=== PATIENT | male | born 1965 | race American Indian/Alaskan Native ===

== ENCOUNTER 2017-09-26 15:51 | Emergency (ER) | payer MEDICAID ==
[2017-09-26 16:04] VITALS: BP 153/96
[2017-09-26] MEDS ORDERED: MOTRIN PO ONE (17:10)
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
== END 2017-09-26 17:17 | disposition home or self-care (01) ==
LOC: ED 15:51
DX: S39.012A Strain of muscle, fascia and tendon of lower back, initial encounter (principal); S46.912A Strain of unspecified muscle, fascia and tendon at shoulder and upper arm level, left arm, initial encounter; I10 Essential (primary) hypertension; M19.90 Unspecified osteoarthritis, unspecified site; V89.2XXA Person injured in unspecified motor-vehicle accident, traffic, initial encounter; Y93.89 Activity, other specified; Y92.89 Other specified places as the place of occurrence of the external cause; Y99.8 Other external cause status
CPT/HCPCS: 99282

== ENCOUNTER 2019-07-25 09:24 | Emergency (ER) | payer MEDICAID ==
--- NOTE | 2019-07-25 10:21 | XRay Report ---
CHEST 2 VIEWS INDICATION: cough. COMPARISON: None. FINDINGS: Support devices: None. Heart: Within normal limits. Pulmonary vasculature: Normal. Lungs/pleura: No acute air space or interstitial disease. No pneumothorax. Additional findings: None. IMPRESSION: 1. No acute findings. Signer Name: Darryl Yen MD Signed: 07/25/2019 10:17 AM Workstation Name: [id number]
[2019-07-25] MEDS ORDERED: IPRATROPIUM/ALBUTEROL SULFATE 3 ML AMPUL.NEB IH ONE (10:36)
[2019-07-25] MEDS ORDERED: predniSONE 20 MG TAB PO ONE (10:37)
--- NOTE | 2019-07-25 11:05 | Emergency Department Report ---
ED General Adult HPI - General Chief complaint: Upper Respiratory Infection Stated complaint: COUGHING Time Seen by Provider: 07/25/19 10:00 Source: patient Mode of arrival: Ambulatory Limitations: No Limitations - History of Present Illness Initial comments: This a 53-year-old man with cerebral palsy accompanied by his mother who is his hospitality coordinator. He has limited ability to provide historical information. He can answer to the affirmative or negative. His mother states that he has been wheezing for the last few days. He does have a nebulizer machine at home. He is out of medication. His been occasionally coughing but there is been no fever or chills observed. His mother states that he "only has one kidney". She states that she thinks that he had blood work which was normal within a year. He has no known history of chronic lung. -: days(s) Associated Symptoms: denies other symptoms, cough, shortness of breath - Related Data Home Medications Medication Instructions Recorded Confirmed Last Taken Carvedilol [Coreg] 12.5 mg PO BID 12/25/14 12/25/14 Unknown Lisinopril [Zestril TAB] 20 mg PO BID 12/25/14 12/25/14 Unknown amLODIPine [Norvasc] 5 mg PO DAILY 12/25/14 12/25/14 Unknown levETIRAcetam [Keppra TAB] 1,000 mg PO BID 12/25/14 12/25/14 Unknown Previous Rx's Medication Instructions Recorded Last Taken Type Acetaminophen/Codeine 1 tab PO Q6H PRN #10 tab 12/25/14 Unknown Rx [Acetaminophen-Codeine #3 TAB] Fluticasone [Flonase] 1 spray NS QDAY #1 bottle 12/25/14 Unknown Rx Pseudoephedrine (Nf) [Sudafed (Nf)] 60 mg PO BID PRN #10 tab 12/25/14 Unknown Rx Cyclobenzaprine [Flexeril] 10 mg PO TID PRN #20 tablet 09/26/17 Unknown Rx Ibuprofen [Motrin] 600 mg PO Q8H PRN #20 tablet 09/26/17 Unknown Rx Azithromycin [Zithromax Z-KELLEN] 250 mg PO DAILY #6 tab 07/25/19 Unknown Rx predniSONE [Deltasone] 40 mg PO QDAY #10 tab 07/25/19 Unknown Rx Allergies Allergy/AdvReac Type Severity Reaction Status Date / Time No Known Allergies Allergy Verified 05/30/14 03:57 ED Review of Systems ROS: Stated complaint: COUGHING Other details as noted in HPI Constitutional: denies: chills, fever Eyes: denies: eye pain, eye discharge, vision change ENT: denies: ear pain, throat pain Respiratory: cough, wheezing. denies: shortness of breath Cardiovascular: denies: chest pain, palpitations Endocrine: no symptoms reported Gastrointestinal: denies: abdominal pain, nausea, diarrhea Genitourinary: denies: urgency, dysuria Musculoskeletal: denies: back pain, joint swelling, arthralgia Skin: denies: rash, lesions Neurological: denies: headache, weakness, paresthesias Psychiatric: denies: anxiety, depression Hematological/Lymphatic: denies: easy bleeding, easy bruising ED Past Medical Hx - Past Medical History Previous Medical History?: Yes Hx Hypertension: Yes Hx Arthritis: Yes Hx Seizures: Yes Additional medical history: cerbral palsy - Surgical History Past Surgical History?: Yes Additional Surgical History: kidney removed at hernia repair - Social History Smoking Status: Never Smoker Substance Use Type: None - Medications Home Medications: Home Medications Medication Instructions Recorded Confirmed Last Taken Type Acetaminophen/Codeine 1 tab PO Q6H PRN #10 tab 12/25/14 Unknown Rx [Acetaminophen-Codeine #3 TAB] Carvedilol [Coreg] 12.5 mg PO BID 12/25/14 12/25/14 Unknown History Fluticasone [Flonase] 1 spray NS QDAY #1 bottle 12/25/14 Unknown Rx Lisinopril [Zestril TAB] 20 mg PO BID 12/25/14 12/25/14 Unknown History Pseudoephedrine (Nf) [Sudafed (Nf)] 60 mg PO BID PRN #10 tab 12/25/14 Unknown Rx amLODIPine [Norvasc] 5 mg PO DAILY 12/25/14 12/25/14 Unknown History levETIRAcetam [Keppra TAB] 1,000 mg PO BID 12/25/14 12/25/14 Unknown History Cyclobenzaprine [Flexeril] 10 mg PO TID PRN #20 tablet 09/26/17 Unknown Rx Ibuprofen [Motrin] 600 mg PO Q8H PRN #20 tablet 09/26/17 Unknown Rx Azithromycin [Zithromax Z-KELLEN] 250 mg PO DAILY #6 tab 07/25/19 Unknown Rx predniSONE [Deltasone] 40 mg PO QDAY #10 tab 07/25/19 Unknown Rx ED Physical Exam - General Limitations: No Limitations General appearance: alert, in no apparent distress - Head Head exam: Present: atraumatic, normocephalic - Eye Eye exam: Present: normal appearance - ENT ENT exam: Present: mucous membranes moist - Neck Neck exam: Present: normal inspection - Respiratory Respiratory exam: Present: wheezes, prolonged expiratory. Absent: respiratory distress, accessory muscle use, decreased breath sounds - Cardiovascular Cardiovascular Exam: Present: regular rate, normal rhythm. Absent: systolic murmur, diastolic murmur, rubs, gallop - GI/Abdominal GI/Abdominal exam: Present: soft, normal bowel sounds. Absent: distended, tenderness, guarding, rebound, rigid - Rectal Rectal exam: Present: deferred - Extremities Exam Extremities exam: Present: normal inspection, normal capillary refill. Absent: pedal edema, joint swelling, calf tenderness - Back Exam Back exam: Present: normal inspection - Neurological Exam Neurological exam: Present: alert, oriented X3, CN II-XII intact. Absent: motor sensory deficit - Psychiatric Psychiatric exam: Present: normal mood, flat affect - Skin Skin exam: Present: warm, dry, intact, normal color. Absent: rash ED Course Vital Signs 07/25/19 07/25/19 07/25/19 09:32 10:59 12:00 Temperature 98.1 F Pulse Rate 69 72 Pulse Rate [ 76 Anterior Bilateral Throughout] Respiratory 18 18 Rate Respiratory 22 Rate [Anterior Bilateral Throughout] Blood Pressure 133/90 Blood Pressure 131/90 [Left] O2 Sat by Pulse 100 98 Oximetry - Reevaluation(s) Reevaluation #1: Patient with clear lungs now asymptomatic. He is appropriate for outpatient management. 07/25/19 12:29 ED Medical Decision Making - Lab Data Result diagrams: 07/25/19 10:40 07/25/19 10:40 Laboratory Results - last 24 hr 07/25/19 07/25/19 10:40 10:40 WBC 8.5 RBC 4.87 Hgb 15.2 Hct 44.3 MCV 91 MCH 31 MCHC 34 RDW 13.7 Plt Count 195 Lymph % (Auto) 21.2 [place] % (Auto) 11.8 H Eos % (Auto) 1.3 Baso % (Auto) 0.5 Lymph # 1.8 [place] # 1.0 H Eos # 0.1 Baso # 0.0 Seg Neutrophils % 65.2 Seg Neutrophils # 5.5 Sodium 140 Potassium 4.1 Chloride 101.0 Carbon Dioxide 24 Anion Gap 19 BUN 17 Creatinine 1.0 Estimated GFR > 60 BUN/Creatinine Ratio 17 Glucose 109 H Calcium 8.9 Total Bilirubin 0.40 Direct Bilirubin < 0.2 Indirect Bilirubin 0.2 AST 17 ALT 15 Alkaline Phosphatase 58 Total Protein 7.7 Albumin 3.9 Albumin/Globulin Ratio 1.0 - Radiology Data Radiology results: report reviewed (no acute process), image reviewed Critical care attestation.: If time is entered above; I have spent that time in minutes in the direct care of this critically ill patient, excluding procedure time. ED Disposition Clinical Impression: Exacerbation of asthma Qualifiers: Asthma severity: moderate Asthma persistence: unspecified Qualified Code(s): J45.901 - Unspecified asthma with (acute) exacerbation Acute bronchitis Qualifiers: Bronchitis organism: unspecified organism Qualified Code(s): J20.9 - Acute bronchitis, unspecified Disposition: DC-01 TO HOME OR SELFCARE Is pt being admited?: No Does the pt Need Aspirin: No Condition: Stable Instructions: Acute Bronchitis (ED) Additional Instructions: Follow-up with family physician. Rx as directed. Return any acute change or worsening symptoms. Prescriptions: predniSONE [Deltasone] 40 mg PO QDAY #10 tab Azithromycin [Zithromax Z-KELLEN] 250 mg PO DAILY #6 tab Referrals: PRIMARY CARE, [Primary Care Provider] - 3-5 Days Time of Disposition: 12:32
[2019-07-25 11:12] LABS: Basophils % (Auto) 0.5 % (0.0-1.8); Eosinophils # (Auto) 0.1 K/mm3 (0.0-0.4); Eosinophils % (Auto) 1.3 % (0.0-4.3); Hematocrit 44.3 % (35.5-45.6); Hemoglobin 15.2 gm/dl (11.8-15.2); Lymphocytes # (Auto) 1.8 K/mm3 (1.2-5.4); Lymphocytes % (Auto) 21.2 % (13.4-35.0); Mean Corpuscular HGB Conc 34 % (32-34); Mean Corpuscular Volume 91 fl (84-94); Monocytes % (Auto) 11.8 % (0.0-7.3); Platelet Count 195 K/mm3 (140-440); Red Blood Count 4.87 M/mm3 (3.65-5.03); Red Cell Distribution Width 13.7 % (13.2-15.2)
[2019-07-25 11:36] LABS: Alanine Aminotransferase 15 units/L (7-56); Albumin 3.9 g/dL (3.9-5); BUN/Creatinine Ratio 17; Blood Urea Nitrogen 17 mg/dL (9-20); Calcium 8.9 mg/dL (8.4-10.2); Hemolysis Index 12
[2019-07-25 11:41] LABS: Bilirubin,Direct < 0.2 mg/dL (0-0.2)
[2019-07-25 12:02] VITALS: BP 131/90
== END 2019-07-25 12:53 | disposition home or self-care (01) ==
LOC: ED 09:24
DX: J45.901 Unspecified asthma with (acute) exacerbation (principal); J20.9 Acute bronchitis, unspecified; I10 Essential (primary) hypertension; G80.9 Cerebral palsy, unspecified
CPT/HCPCS: 36415; 71046; 80048; 80076; 85025; 94640; 99284; J7512; 94644

== ENCOUNTER 2021-02-04 09:53 | Emergency (ER) | payer MEDICAID ==
[2021-02-04 10:33] VITALS: BP 142/93
--- NOTE | 2021-02-04 10:36 | Emergency Department Report ---
- General Chief Complaint: Upper Respiratory Infection Stated Complaint: COUGHING Time Seen by Provider: 02/04/21 10:30 Source: patient Mode of arrival: Ambulatory Limitations: Other - History of Present Illness Initial Comments: 55-year-old male with a past medical history of cerebral palsy, hypertension and arthritis was brought to the ER today by foster mom with complaints of coughing. She states that patient started with a wet cough 4 days ago. She reports mild nasal congestion but otherwise denies any apparent shortness of breath/difficulty breathing, wheezing complaints of chest pain, fever or chills. She states that the cough seems to be worse when patient is in the hospital when he gets outside it seems to improve. She states that she has been giving patient nebulizer treatments 2 times per day. Patient has had similar symptoms of his cough, and prior ER evaluation for his cough in the past. She states that she is also follow-up with patient's primary care doctor but there has been no official diagnosis of the cause of the cough. She denies any known diagnosis of asthma or COPD or any other lung disease. She states patient does not smoke. She states patient was exposed to someone at his adult daycare facility who had COVID-19. She states that patient had a COVID-19 test last week and it was negative. He also received his first Covid vaccine last week but it was after getting a COVID-19 test. She denies any recent travel. MD Complaint: cough -: Gradual, days(s) (4) - Related Data Home Medications Medication Instructions Recorded Confirmed Last Taken amLODIPine 5 mg PO DAILY 12/25/14 12/25/14 02/04/21 carvediloL [Coreg] 12.5 mg PO BID 12/25/14 12/25/14 02/04/21 10:43 lisinopriL [Zestril TAB] 20 mg PO BID 12/25/14 12/25/14 02/04/21 10:42 Previous Rx's Medication Instructions Recorded Last Taken Type Albuterol Mdi (or & Nicu Only) 2 puff IH QID PRN #8.5 gram 02/04/21 Unknown Rx [ProAir HFA Inhaler] Azithromycin [Zithromax Z-KELLEN] 250 mg PO DAILY #1 pack 02/04/21 Unknown Rx Benzonatate [Tessalon Perles] 100 mg PO Q8HR PRN #30 capsule 02/04/21 Unknown Rx Cetirizine HCl [Zyrtec 10mg tab] 10 mg PO DAILY #30 tablet 02/04/21 Unknown Rx predniSONE [Deltasone] 50 mg PO QDAY #5 tab 02/04/21 Unknown Rx Allergies Allergy/AdvReac Type Severity Reaction Status Date / Time No Known Allergies Allergy Verified 02/04/21 10:29 ED Review of Systems ROS: Stated complaint: COUGHING Other details as noted in HPI Comment: All other systems reviewed and negative Constitutional: denies: chills, diaphoresis, fever, malaise Eyes: denies: vision change ENT: congestion. denies: ear pain, throat pain, dental pain, hearing loss, epistaxis Respiratory: cough. denies: shortness of breath, SOB with exertion, SOB at rest, wheezing Cardiovascular: denies: chest pain, palpitations, dyspnea on exertion, edema, syncope, paroxysmal nocturnal dyspnea Endocrine: no symptoms reported Gastrointestinal: denies: abdominal pain, nausea, diarrhea, constipation, hematemesis, hematochezia Genitourinary: denies: urgency, dysuria Musculoskeletal: denies: back pain, joint swelling, arthralgia Skin: denies: rash, lesions, change in color, change in hair/nails Neurological: denies: headache, weakness, numbness, paresthesias, confusion, abnormal gait, vertigo Psychiatric: denies: auditory hallucinations, visual hallucinations, homicidal thoughts, suicidal thoughts Hematological/Lymphatic: denies: easy bleeding, easy bruising ED Past Medical Hx - Past Medical History Hx Hypertension: Yes Hx Arthritis: Yes Hx Seizures: Yes Additional medical history: cerbral palsy - Surgical History Additional Surgical History: kidney removed at hernia repair - Social History Smoking Status: Never Smoker Substance Use Type: None - Medications Home Medications: Home Medications Medication Instructions Recorded Confirmed Last Taken Type amLODIPine 5 mg PO DAILY 12/25/14 12/25/14 02/04/21 History carvediloL [Coreg] 12.5 mg PO BID 12/25/14 12/25/14 02/04/21 10:43 History lisinopriL [Zestril TAB] 20 mg PO BID 12/25/14 12/25/14 02/04/21 10:42 History Albuterol Mdi (or & Nicu Only) 2 puff IH QID PRN #8.5 gram 02/04/21 Unknown Rx [ProAir HFA Inhaler] Azithromycin [Zithromax Z-KELLEN] 250 mg PO DAILY #1 pack 02/04/21 Unknown Rx Benzonatate [Tessalon Perles] 100 mg PO Q8HR PRN #30 capsule 02/04/21 Unknown Rx Cetirizine HCl [Zyrtec 10mg tab] 10 mg PO DAILY #30 tablet 02/04/21 Unknown Rx predniSONE [Deltasone] 50 mg PO QDAY #5 tab 02/04/21 Unknown Rx ED Physical Exam - General Limitations: Other General appearance: alert, in no apparent distress - Head Head exam: Present: atraumatic, normocephalic, normal inspection - Eye Eye exam: Present: normal appearance, PERRL, EOMI Pupils: Present: normal accommodation - ENT ENT exam: Present: normal exam, mucous membranes moist - Neck Neck exam: Present: normal inspection, full ROM - Respiratory Respiratory exam: Present: normal lung sounds bilaterally. Absent: respiratory distress - Cardiovascular Cardiovascular Exam: Present: regular rate, normal rhythm, normal heart sounds - GI/Abdominal GI/Abdominal exam: Present: soft. Absent: distended, tenderness, guarding, rebound - Neurological Exam Neurological exam: Present: alert, oriented X3, CN II-XII intact, normal gait - Psychiatric Psychiatric exam: Present: normal affect, normal mood - Skin Skin exam: Present: intact ED Course Vital Signs 02/04/21 10:32 Temperature 98.3 F Pulse Rate 79 Respiratory 20 Rate Blood Pressure 142/93 O2 Sat by Pulse 100 Oximetry ED Medical Decision Making - Radiology Data Radiology results: report reviewed Patient: NELLIE RAMEY MR#: [id number] : 1965 Acct:[id number] Age/Sex: 55 / M ADM Date: 02/04/21 Loc: ED Attending Dr: Ordering Physician: REID IBARRA NP Date of Service: 02/04/21 Procedure(s): XR chest routine 2V Accession Number(s): [id number] cc: REID IBARRA NP Fluoro Time In Minutes: CHEST 2 VIEWS INDICATION / CLINICAL INFORMATION: cough. COMPARISON: 2 views of the chest from 07/25/2019. FINDINGS: SUPPORT DEVICES: None. HEART / MEDIASTINUM: No significant abnormality. LUNGS / PLEURA: A right upper lobe calcified granuloma is unchanged. The lungs are otherwise clear. No significant pleural effusion. No pneumothorax. ADDITIONAL FINDINGS: No significant additional findings. IMPRESSION: 1. No acute abnormality of the chest. Signer Name: Valerio Earl MD Signed: 02/04/2021 11:26 AM Workstation Name: [id number] Transcribed By: JAVAD Dictated By: Valerio Earl MD Electronically Authenticated By: Valerio Earl MD Signed Date/Time: 02/04/211125 DD/ 25 TD/TT: - Medical Decision Making Chest xray shows nothing acute. Patient resting comfortably. He is not in any acute respiratory distress. His VS are stable. Suspect URI/bronchitis at this time. His history, PE, diagnostic testing and current condition does not suggest acs/unstable angina, PE, severe pneumonia, sepsis or any other significant emergent issues at this time requiring further testing, or admission at this time. Discussed xray result, suspected dx and tx plan with foster mom. Recommend close f/u with PCP next week. Patient stable a time of d/c. Critical care attestation.: If time is entered above; I have spent that time in minutes in the direct care of this critically ill patient, excluding procedure time. ED Disposition Clinical Impression: Bronchitis, Cough Disposition: DC-01 TO HOME OR SELFCARE Is pt being admited?: No Does the pt Need Aspirin: No Condition: Stable Instructions: Cough, Adult, [id number], Acute Bronchitis, Adult, Chronic Bronchitis (ED) Additional Instructions: Continue giving the nebulizer treatments but you can do every 4-6hrs as needed. The albuterol MDI is rescue inhaler that he can carry with him if he goes out and to use every 4-6hrs as needed. Given the zpak, tessalon perles, zyrtec and prednisone as prescribed. I recommend following up with pcp next week. Also recommend talking to his primary care about doctor about the lisinopril as this is an SUYAPA inhibitor and can cause chronic cough. Return to the ER if your symptoms changes or worsens in any way. Prescriptions: predniSONE [Deltasone] 50 mg PO QDAY #5 tab Albuterol Mdi (or & Nicu Only) [ProAir HFA Inhaler] 2 puff IH QID PRN #8.5 gram PRN Reason: Shortness Of Breath Benzonatate [Tessalon Perles] 100 mg PO Q8HR PRN #30 capsule PRN Reason: Cough Azithromycin [Zithromax Z-KELLEN] 250 mg PO DAILY #1 pack Cetirizine HCl [Zyrtec 10mg tab] 10 mg PO DAILY #30 tablet Referrals: NORMAN BALL MD [Primary Care Provider] - 3-5 Days Time of Disposition: 11:42
--- NOTE | 2021-02-04 11:31 | XRay Report ---
CHEST 2 VIEWS INDICATION / CLINICAL INFORMATION: cough. COMPARISON: 2 views of the chest from 07/25/2019. FINDINGS: SUPPORT DEVICES: None. HEART / MEDIASTINUM: No significant abnormality. LUNGS / PLEURA: A right upper lobe calcified granuloma is unchanged. The lungs are otherwise clear. N o significant pleural effusion. No pneumothorax. ADDITIONAL FINDINGS: No significant additional findings. IMPRESSION: 1. No acute abnormality of the chest. Signer Name: Valerio Earl MD Signed: 02/04/2021 11:26 AM Workstation Name: [id number]
== END 2021-02-04 11:55 | disposition home or self-care (01) ==
LOC: ED 09:53
DX: J40 Bronchitis, not specified as acute or chronic (principal); R05 Cough; I10 Essential (primary) hypertension; M19.91 Primary osteoarthritis, unspecified site; R56.9 Unspecified convulsions; Z98.890 Other specified postprocedural states; Z79.899 Other long term (current) drug therapy
CPT/HCPCS: 71046

== ENCOUNTER 2021-02-11 10:55 | Emergency (ER) | payer MEDICAID ==
[2021-02-11 11:10] VITALS: BP 138/83
--- NOTE | 2021-02-11 11:13 | Emergency Department Report ---
ED General Adult HPI - General Chief complaint: Dyspnea/Respdistress Stated complaint: SEEN HERE FOR COUGH/DID NOT FOLLOW UP Time Seen by Provider: 02/11/21 11:09 Source: patient, family Mode of arrival: Ambulatory Limitations: No Limitations - History of Present Illness Initial comments: 55-year-old male patient with history of cerebral palsy and hypertension presents to the emergency department with complaints of a nonproductive cough for approximately 2 weeks. Patient was evaluated in the emergency department 1 week ago and diagnosed with viral upper respiratory infection. He was treated with glucocorticoids, antitussives, antibiotics, and antihistamines. He has since completed the antibiotics and glucocorticoids. Cough has not resolved. Patient has not followed up with primary care provider since his last ED visit. He does not smoke. He has never been diagnosed with chronic lung disease. He has never been diagnosed with pneumonia. No known sick contacts. Tested negative for COVID-19 2 weeks ago. Patient is on an SUYAPA inhibitor. Denies fever, chills, chest pain, wheezing, nausea, vomiting, hemoptysis, syncope, rash. Denies all other complaints at this time. - Related Data Home Medications Medication Instructions Recorded Confirmed Last Taken amLODIPine 5 mg PO DAILY 12/25/14 12/25/14 02/04/21 carvediloL [Coreg] 12.5 mg PO BID 12/25/14 12/25/14 02/04/21 10:43 lisinopriL [Zestril TAB] 20 mg PO BID 12/25/14 12/25/14 02/04/21 10:42 Previous Rx's Medication Instructions Recorded Last Taken Type Albuterol Mdi (or & Nicu Only) 2 puff IH QID PRN #8.5 gram 02/04/21 Unknown Rx [ProAir HFA Inhaler] Azithromycin [Zithromax Z-KELLEN] 250 mg PO DAILY #1 pack 02/04/21 Unknown Rx Benzonatate [Tessalon Perles] 100 mg PO Q8HR PRN #30 capsule 02/04/21 Unknown Rx Cetirizine HCl [Zyrtec 10mg tab] 10 mg PO DAILY #30 tablet 02/04/21 Unknown Rx predniSONE [Deltasone] 50 mg PO QDAY #5 tab 02/04/21 Unknown Rx Amoxicillin/Potassium Clav 2,000 mg PO BID 10 Days tab.er.12h 02/11/21 Unknown Rx [Augmentin XR 1000MG 12HR] Doxycycline Hyclate 100 mg PO BID 10 Days tablet. 02/11/21 Unknown Rx Allergies Allergy/AdvReac Type Severity Reaction Status Date / Time No Known Allergies Allergy Verified 02/04/21 10:29 ED Review of Systems ROS: Stated complaint: SEEN HERE FOR COUGH/DID NOT FOLLOW UP Other details as noted in HPI Other: GENERAL: Negative for fever, chills, weight change, anorexia, fatigue. ENT: Negative for ear pain, difficulty hearing, sore throat, nasal congestion, epistaxis. CARDIOVASCULAR: Negative for chest pain, palpitations, lower extremity swelling. PULMONARY: Positive for cough. GASTROINTESTINAL: Negative for abdominal pain, nausea, vomiting, diarrhea, constipation. MUSCULOSKELETAL: Negative for joint pain, joint swelling, myalgias, back pain, neck pain. NEUROLOGICAL: Negative for headache, seizure, syncope, paresthesias, weakness. INTEGUMENTARY: Negative for erythema, rash, diaphoresis, laceration, ecchymosis. HEMATOLOGICAL: Negative for hemoptysis, hematemesis, hematochezia, hematuria. PSYCHIATRIC: Negative for hallucinations, suicidal ideation, homicidal ideation, anxiety, depression. ED Past Medical Hx - Past Medical History Hx Hypertension: Yes Hx Arthritis: Yes Hx Seizures: Yes Additional medical history: cerbral palsy - Surgical History Past Surgical History?: Yes Additional Surgical History: kidney removed at hernia repair - Social History Smoking Status: Never Smoker Substance Use Type: None - Medications Home Medications: Home Medications Medication Instructions Recorded Confirmed Last Taken Type amLODIPine 5 mg PO DAILY 12/25/14 12/25/14 02/04/21 History carvediloL [Coreg] 12.5 mg PO BID 12/25/14 12/25/14 02/04/21 10:43 History lisinopriL [Zestril TAB] 20 mg PO BID 12/25/14 12/25/14 02/04/21 10:42 History Albuterol Mdi (or & Nicu Only) 2 puff IH QID PRN #8.5 gram 02/04/21 Unknown Rx [ProAir HFA Inhaler] Azithromycin [Zithromax Z-KELLEN] 250 mg PO DAILY #1 pack 02/04/21 Unknown Rx Benzonatate [Tessalon Perles] 100 mg PO Q8HR PRN #30 capsule 02/04/21 Unknown Rx Cetirizine HCl [Zyrtec 10mg tab] 10 mg PO DAILY #30 tablet 02/04/21 Unknown Rx predniSONE [Deltasone] 50 mg PO QDAY #5 tab 02/04/21 Unknown Rx Amoxicillin/Potassium Clav 2,000 mg PO BID 10 Days tab.er.12h 02/11/21 Unknown Rx [Augmentin XR 1000MG 12HR] Doxycycline Hyclate 100 mg PO BID 10 Days tablet. 02/11/21 Unknown Rx ED Physical Exam - General Limitations: No Limitations - Other Other exam information: General: Awake and alert. No acute distress. Head: Atraumatic, normocephalic. Eyes: EOMI. Pupils are equal and round. Normal sclera and conjunctiva. ENT: Oral mucosa is moist. Normal pharyngeal exam. Neck: Supple. No lymphadenopathy. Pulmonary: Actively coughing during examination. Scattered rhonchi bilaterally. No wheezing or stridor. Cardiac: Regular rate and rhythm. Pulses are palpable and equal bilaterally. No lower extremity cyanosis or edema. Skin: Warm and dry. No rashes. Abdomen: Soft, non-tender, non-protuberant. No guarding, rigidity, or rebound. Bowel sounds are normal. No organomegaly or masses noted. Back: Normal alignment. No CVA tenderness. Extremities: Symmetrical. Full range of motion intact. Neurological: Alert and oriented, appropriately interactive, no focal deficits. Psych: Cooperative. Appropriate mood and affect. Speech is evenly metered. Thoughts are logically construed. ED Course Vital Signs 02/11/21 11:05 Temperature 98.4 F Pulse Rate 97 H Respiratory 20 Rate Blood Pressure 138/83 [Right] O2 Sat by Pulse 97 Oximetry ED Medical Decision Making - Radiology Data [facility] [address] [place] [address] XRay Report Signed Patient: NELLIE RAMEY MR#: [id number] : 1965 Acct:[id number] Age/Sex: 55 / M ADM Date: 02/11/21 Loc: ED Attending Dr: Ordering Physician: JOSE SOUTH Date of Service: 02/11/21 Procedure(s): XR chest routine 2V Accession Number(s): [id number] cc: JOSE SOUTH Fluoro Time In Minutes: XR chest routine 2V INDICATION / CLINICAL INFORMATION: cough COMPARISON: 02/04/2021 FINDINGS: SUPPORT DEVICES: None. HEART / MEDIASTINUM: No significant abnormality. LUNGS / PLEURA: Patchy bilateral peripheral opacities. Costophrenic sulci are sharp. No pneumothorax. ADDITIONAL FINDINGS: No significant additional findings. IMPRESSION: 1. Patchy bilateral airspace disease concerning for pneumonia. Signer Name: Paramjit Soto MD Signed: 02/11/2021 11:42 AM Workstation Name: [id number] Transcribed By: CS Dictated By: Paramjit Soto MD Electronically Authenticated By: Paramjit Soto MD Signed Date/Time: 02/11/21 114 DD/ 1142 TD/TT: - Medical Decision Making Differential diagnosis including but not limited to: pneumonia, influenza, COVID-19, pleural effusion, pneumothorax, emphysema, SUYAPA inhibitor cough, tuberculosis, pneumonitis On reevaluation, patient remains stable. No hypoxia, no respiratory distress. He is well-hydrated and tolerating oral intake without difficulty. Chest x-ray shows patchy bilateral airspace disease concerning for pneumonia. Patient has no known history of chronic lung disease and no risk factors for HCAP. He is an appropriate candidate for outpatient management per PSI risk stratification. Patient will be treated with dual antibiotic therapy (Augmentin + Doxycycline) per 2019 ATS/IDSA guidelines. Patient already completed a course of macrolide antibiotics last week. He has been instructed to continue all other medications as previously prescribed. Emphasized the importance of following up with primary care provider this week for evaluation. Patient expressed understanding and is agreeable to plan of care. Disease transmission precautions discussed. Strict return precautions provided. Repeat exam is unremarkable and benign. History, exam, diagnostic testing, and current condition do not suggest worrisome pathology to warrant further testing, continued ED treatment, admission, or surgical evaluation at this point. Given the low probability of a significant medical illness, it would be more likely to result in harm than benefit to perform further testing at this stage. Discussed findings, presumptive diagnosis, need for follow-up and specific signs/symptoms that should prompt immediate return to the emergency department. Instructions were explained in detail to the patient in addition to giving written discharge information. Patient expressed understanding and was given the opportunity to ask questions, all of which were satisfactorily answered prior to discharge home. Critical care attestation.: If time is entered above; I have spent that time in minutes in the direct care of this critically ill patient, excluding procedure time. ED Disposition Clinical Impression: Pneumonia Qualifiers: Pneumonia type: due to unspecified organism Laterality: unspecified laterality Lung location: unspecified part of lung Qualified Code(s): J18.9 - Pneumonia, unspecified organism Disposition: DC-01 TO HOME OR SELFCARE Is pt being admited?: No Does the pt Need Aspirin: No Condition: Stable Instructions: Community-Acquired Pneumonia, Adult, [id number], Bacterial Pneumonia (ED) Additional Instructions: Continue all medications as previously prescribed. Take Augmentin and doxycycline with food as directed. Increase your dietary intake of probiotic rich foods while taking these medications. Avoid environmental/occupational exposures, which may worsen cough. Honey is an excellent natural cough suppressant. Rest. Drink plenty of fluids. Wash hands frequently to prevent disease transmission. Do not share food or drinks with others. Follow-up with your primary care provider this week. Call today to schedule an appointment. Return to the emergency department immediately for new or worsening symptoms. Specifically, return to the emergency department immediately for fever, difficulty breathing, dehydration, rash, mental status changes, or any other concerns. Prescriptions: Amoxicillin/Potassium Clav [Augmentin XR 1000MG 12HR] 2,000 mg PO BID 10 Days tab.er.12h Doxycycline Hyclate 100 mg PO BID 10 Days tablet.dr Referrals: ROHITH MIMS MD [Staff Physician] - 3-5 Days Time of Disposition: 12:24
--- NOTE | 2021-02-11 11:47 | XRay Report ---
XR chest routine 2V INDICATION / CLINICAL INFORMATION: cough COMPARISON: 02/04/2021 FINDINGS: SUPPORT DEVICES: None. HEART / MEDIASTINUM: No significant abnormality. LUNGS / PLEURA: Patchy bilateral peripheral opacities. Costophrenic sulci are sharp. No pneumothorax. ADDITIONAL FINDINGS: No significant additional findings. IMPRESSION: 1. Patchy bilateral airspace disease concerning for pneumonia. Signer Name: Paramjit Soto MD Signed: 02/11/2021 11:42 AM Workstation Name: [id number]
== END 2021-02-11 12:39 | disposition home or self-care (01) ==
LOC: ED 10:55
DX: J18.9 Pneumonia, unspecified organism (principal); I10 Essential (primary) hypertension; M19.91 Primary osteoarthritis, unspecified site; R56.9 Unspecified convulsions; Z98.890 Other specified postprocedural states; Z79.2 Long term (current) use of antibiotics; Z79.899 Other long term (current) drug therapy
CPT/HCPCS: 71046